=== PATIENT | male | born 1980 | race Caucasian/White ===

== ENCOUNTER 2019-02-26 08:09 | Emergency (ER) | payer SELFPAY ==
[~2019-02-26] VITALS: Ht 175.2 cm; Wt 63.6 kg
[2019-02-26] MEDS ORDERED: LACTATED RINGERS 1,000 ML IV STA (08:31)
--- NOTE | 2019-02-26 08:43 | ED Abdominal Pain ---
General Chief Complaint: Abdominal/GI Problems Stated Complaint: ABD PAIN History of Present Illness Date Seen by Provider: Feb 26, 2019 Time Seen by Provider: 08:20 Initial Comments The patient is a 38-year-old male with a history of Crohn's disease on sulfasalazine but not on any other disease modifying medications. He has a surgical history of appendectomy only. He presents with concern for 1 month of mild midline infraumbilical abdominal discomfort with associated progressive abdominal wall induration. Over the last 1-2 days patient has noted erythema to his umbilicus and infraumbilical abdominal wall. For this reason he elected to present to the emergency department for evaluation. Associated chronic nausea but no new or worsened nausea or vomiting. No associated fevers, hematemesis, hematochezia, melena, cough, shortness of breath or chest pain, flank pain, back pain, specifically right sided abdominal pain, dysuria or hematuria, groin pain, changes in bowel habits. He states he has been having mildly loose bowel movements secondary to MiraLAX use but reports no change in stool frequency recently. Patient is resting comfortably in no acute distress upon initial evaluation in the emergency department. He states he was worried by the redness to his abdominal wall and wanted to get it checked out. Allergies and Home Medications Allergies Coded Allergies: No Known Drug Allergies (Unverified , 02/26/19) Patient Home Medication List Home Medication List Reviewed: Yes Review of Systems Review of Systems Constitutional: see HPI All Other Systems Reviewed Negative Unless Noted: Yes (Negative excepted noted.) Past Jdakedf-Acknep-Yfcosy Hx Past Med/Social Hx: Reviewed Nursing Past Med/Soc Hx Patient Social History Recent Foreign Travel: Yes Family Medical History Reviewed Nursing Family Hx Physical Exam Vital Signs Vital Signs - First Documented 02/26/19 08:18 Temp 36.5 Pulse 112 Resp 16 B/P (MAP) 140/92 (108) Pulse Ox 98 O2 Delivery Room Air Capillary Refill : Height/Weight/BMI Height: '" Weight: lbs. oz. kg; BMI Method: General Appearance: no apparent distress Exam Comments This is a younger male appearing nontoxic and in no acute distress. Head is normocephalic and atraumatic. Neck is supple and nontender. Oropharynx is moist. Lungs clear to auscultation in all stations. There is a normal S1 and S2 without rubs or gallops and capillary refill is appropriate, less than 2 seconds globally. Abdomen is soft and nondistended and with an area of significant umbilical and infraumbilical midline tenderness, erythema and warmth. There is significant induration to the abdominal wall over the site in question. No rebound or guarding. Skin is warm and dry without cyanosis, clubbing or edema. Psychiatrically, the patient demonstrates appropriate mood and affect and is alert. Progress/Results/Core Measures Results/Orders Lab Results Laboratory Tests Test 02/26/19 08:35 02/26/19 09:42 Range/Units White Blood Count 15.8 H 4.3-11.0 10^3/uL Red Blood Count 4.67 4.35-5.85 10^6/uL Hemoglobin 14.5 13.3-17.7 G/DL Hematocrit 43 40-54 % Mean Corpuscular Volume 92 80-99 FL Mean Corpuscular Hemoglobin 31 25-34 PG Mean Corpuscular Hemoglobin Concent 34 32-36 G/DL Red Cell Distribution Width 12.6 10.0-14.5 % Platelet Count 386 130-400 10^3/uL Mean Platelet Volume 8.9 7.4-10.4 FL Neutrophils (%) (Auto) 82 H 42-75 % Lymphocytes (%) (Auto) 8 L 12-44 % Monocytes (%) (Auto) 10 0-12 % Eosinophils (%) (Auto) 0 0-10 % Basophils (%) (Auto) 0 0-10 % Neutrophils # (Auto) 12.9 H 1.8-7.8 X 10^3 Lymphocytes # (Auto) 1.3 1.0-4.0 X 10^3 Monocytes # (Auto) 1.6 H 0.0-1.0 X 10^3 Eosinophils # (Auto) 0.0 0.0-0.3 10^3/uL Basophils # (Auto) 0.0 0.0-0.1 10^3/uL Neutrophils % (Manual) 62 % Lymphocytes % (Manual) 9 % Monocytes % (Manual) 13 % Band Neutrophils 14 % Atypical Lymphocytes 2 % Blood Morphology Comment NORMAL Sodium Level 135 135-145 MMOL/L Potassium Level 3.7 3.6-5.0 MMOL/L Chloride Level 96 L 98-107 MMOL/L Carbon Dioxide Level 26 21-32 MMOL/L Anion Gap 13 5-14 MMOL/L Blood Urea Nitrogen 4 L 7-18 MG/DL Creatinine 0.74 0.60-1.30 MG/DL Estimat Glomerular Filtration Rate > 60 BUN/Creatinine Ratio 5 Glucose Level 142 H 70-105 MG/DL Calcium Level 9.4 8.5-10.1 MG/DL Corrected Calcium 9.3 8.5-10.1 MG/DL Total Bilirubin 0.5 0.1-1.0 MG/DL Aspartate Amino Transf (AST/SGOT) 10 5-34 U/L Alanine Aminotransferase (ALT/SGPT) 7 0-55 U/L Alkaline Phosphatase 82 40-136 U/L Total Protein 7.9 6.4-8.2 GM/DL Albumin 4.1 3.2-4.5 GM/DL Lipase 16 8-78 U/L My Orders Orders - LINCOLN SAAVEDRA MD Cbc With Automated Diff (02/26/19 08:31) Comprehensive Metabolic Panel (02/26/19 08:31) Lipase (02/26/19 08:31) Ua Culture If Indicated (02/26/19 08:31) Ct Abdomen/Pelvis W (02/26/19 08:31) Ondansetron Injection (Zofran Injectio (02/26/19 08:45) Lactated Ringers (Lr 1000 Ml Iv Solution (02/26/19 08:31) Ed Iv/Invasive Line Start (02/26/19 08:31) Ketorolac Injection (Toradol Injection) (02/26/19 08:45) Manual Differential (02/26/19 08:35) Iohexol Injection (Omnipaque 350 Mg/Ml 1 (02/26/19 09:00) Received Contrast (Hold Metformin- Contr (02/26/19 09:00) Sodium Chloride Flush (Catheter Flush Sy (02/26/19 09:00) Ns (Ivpb) (Sodium Chloride 0.9% Ivpb Bag (02/26/19 09:00) Piperacillin/Tazobactam (Bulk) (Zosyn In (02/26/19 10:00) Blood Culture (02/26/19 09:57) Lactic Acid Analyzer (02/26/19 09:57) Medications Given in ED Current Medications Medications Dose Ordered Sig/Lyubov Route Start Time Stop Time Status Last Admin Dose Admin Iohexol 100 ml ONCE ONCE IV 02/26/19 09:00 02/26/19 09:01 DC 02/26/19 09:11 100 ML Ketorolac Tromethamine 30 mg ONCE ONCE IVP 02/26/19 08:45 02/26/19 08:46 DC 02/26/19 08:52 30 MG Ondansetron HCl 4 mg ONCE ONCE IVP 02/26/19 08:45 02/26/19 08:46 DC 02/26/19 08:52 4 MG Sodium Chloride 10 ml NEEDED PRN IV 02/26/19 09:00 02/26/19 09:11 10 ML Sodium Chloride 100 ml ONCE ONCE IV 02/26/19 09:00 02/26/19 09:01 DC 02/26/19 09:11 80 ML Vital Signs/I&O 02/26/19 08:18 Temp 36.5 Pulse 112 Resp 16 B/P (MAP) 140/92 (108) Pulse Ox 98 O2 Delivery Room Air Progress Progress Note : Time: 08:43 Progress Note Younger, well-appearing gentleman with Crohn's disease who presents with 1 month of progressive abdominal discomfort infraumbilically with induration to the abd ominal wall and associated erythema 2 days. We will check labs and give IV fluids and medication for discomfort and will obtain a CT scan of the abdomen and pelvis with contrast to further evaluate the patient's symptoms. We will then reevaluate. Update 1000: Call by radiology with concern for enterocutaneous fistula with associated abdominal wall abscess. Bladder wall also appears thickened. We will initiate antibiotics after blood cultures and lactate. Case is discussed with Dr. Simental of general surgery at [facility] who recommends transfer to a higher level of care for attention from gastroenterology and interventional radiology for drainage of abscess. We will proceed with transfer to [facility] at this time. Patient is graciously accepted in transfer by the on-duty hospitalist at that facility. We'll proceed with transfer via EMS at this time. Diagnostic Imaging Diagonstic Imaging: CT Comments Date of Exam:02/26/19 CT ABDOMEN/PELVIS W PROCEDURE: CT abdomen and pelvis with contrast. TECHNIQUE: Multiple contiguous axial images were obtained through the abdomen and pelvis after administration of intravenous contrast. Auto Exposure Controls were utilized during the CT exam to meet ALARA standards for radiation dose reduction. INDICATION: [id number] abdominal pain. COMPARISON: No prior studies are available for comparison. FINDINGS: The lung bases are clear. No focal liver mass is identified. The gallbladder is unremarkable. No biliary ductal dilatation is identified. The pancreas is unremarkable. The spleen is unremarkable. Bilateral adrenal glands are unremarkable. No adrenal mass is detected. No renal mass or hydronephrosis is identified. The aorta is non-aneurysmal. Significant inflammatory changes are identified in the lower abdomen and upper pelvis. Significant wall thickening is noted involving a long segment of the terminal ileum. Patient reportedly does have a history of Crohn's disease. There is a gas collection which extends from the right lower quadrant to the anterior midline abdomen in the infraumbilical location, suggestive of a fistula. There is a small fluid collection midline anterior abdominal wall measuring 4.1 cm cephalocaudal x 2.5 cm AP x 1.5 cm transverse. This does contain small gas bubbles and is consistent with a small abscess. Significant nodularity and wall thickening involving the anterior aspect of the bladder dome is noted. No bowel obstruction is identified. There is no free fluid. No other fluid collections are identified. IMPRESSION: Marked inflammatory changes in the right lower quadrant, as described involving the terminal ileum and cecum. Features are most consistent with active Crohn's disease. 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 A small abscess is located within the anterior abdominal wall at this location. In addition, there is marked nodularity and thickening involving the anterior bladder dome. While this could be inflammatory in nature from adjacent inflammation from Crohn's disease, possibility of bladder neoplasm cannot be entirely excluded. Cystoscopy after course of therapy is recommended to confirm resolution. Dictated on workstation # [id number] Dict: 02/26/19 0925 Trans: 02/26/19 0951 [facility] [id number] Interpreted by: MORGAN LEI MD Electronically signed by: Departure Impression Primary Impression: Periumbilic abdominal rigidity Additional Impressions: Periumbilic abdominal tenderness Enterocutaneous fistula Disposition: 02 XFER SHT-TRM HOSP Condition: Stable LINCOLN SAAVEDRA MD Feb 26, 2019 08:43 POS
[2019-02-26] MEDS ORDERED: KETOROLAC 30 MG/ML VIAL IVP ONE (08:45)
[2019-02-26] MEDS ORDERED: ONDANSETRON 4 MG/2 ML (SDV) Z0FRAN IVP ONE (08:45)
[2019-02-26 08:51] LABS: BASOPHILS % (AUTO) 0 % (0-10); EOSINOPHILS % (AUTO) 0 % (0-10); HEMATOCRIT 43 % (40-54); HEMOGLOBIN 14.5 G/DL (13.3-17.7); LYMPHOCYTES # (AUTO) 1.3 X 10^3 (1.0-4.0); LYMPHOCYTES % (AUTO) 8 % (12-44); MEAN CORPUSCULAR HEMOGLOBIN 31 PG (25-34); MEAN CORPUSCULAR HGB CONC 34 G/DL (32-36); MEAN CORPUSCULAR VOLUME 92 FL (80-99); MEAN PLATELET VOLUME 8.9 FL (7.4-10.4); MONOCYTES # (AUTO) 1.6 X 10^3 (0.0-1.0); MONOCYTES % (AUTO) 10 % (0-12); NEUTROPHILS # (AUTO) 12.9 X 10^3 (1.8-7.8); NEUTROPHILS % (AUTO) 82 % (42-75); PLATELET COUNT 386 10^3/uL (130-400); RED CELL DISTRIBUTION WIDTH 12.6 % (10.0-14.5); WHITE BLOOD COUNT 15.8 10^3/uL (4.3-11.0)
[2019-02-26] MEDS ORDERED: IOHEXOL 350 MG/ML 100 ML (OMNIPAQUE 350) VIAL IV ONE (09:00)
[2019-02-26] MEDS ORDERED: NS 100 ML (IVPB) BAG IV ONE (09:00)
[2019-02-26] MEDS ORDERED: HOLD METFORMIN - RECEIVED CONTRAST 20 ML VIAL IV SCH (09:00)
[2019-02-26] MEDS ORDERED: CATHETER FLUSH 10 ML SYR IV PRN (09:00)
[2019-02-26 09:06] LABS: ATYPICAL LYMPHOCYTES 2 %; BAND NEUTROPHILS 14 %; LYMPHOCYTES % (MANUAL) 9 %; MONOCYTES % (MANUAL) 13 %; NEUTROPHILS % (MANUAL) 62 %; RBC MORPH NORMAL
[2019-02-26 09:09] LABS: ALANINE AMINOTRANSFERASE 7 U/L (0-55); ALBUMIN 4.1 GM/DL (3.2-4.5); ALKALINE PHOSPHATASE 82 U/L (40-136); BILIRUBIN,TOTAL 0.5 MG/DL (0.1-1.0); BUN/CREATININE RATIO 5; CALCIUM 9.4 MG/DL (8.5-10.1); CARBON DIOXIDE 26 MMOL/L (21-32); CHLORIDE 96 MMOL/L (98-107); CREATININE SERUM 0.74 MG/DL (0.60-1.30); GFR ESTIMATED > 60; GLUCOSE 142 MG/DL (70-105); LIPASE 16 U/L (8-78); POTASSIUM 3.7 MMOL/L (3.6-5.0); SODIUM 135 MMOL/L (135-145); TOTAL PROTEIN 7.9 GM/DL (6.4-8.2)
--- NOTE | 2019-02-26 09:51 | Diagnostic Imaging Report ---
PROCEDURE: CT abdomen and pelvis with contrast. TECHNIQUE: Multiple contiguous axial images were obtained through the abdomen and pelvis after administration of intravenous contrast. Auto Exposure Controls were utilized during the CT exam to meet ALARA standards for radiation dose reduction. INDICATION: [id number] abdominal pain. COMPARISON: No prior studies are available for comparison. FINDINGS: The lung bases are clear. No focal liver mass is identified. The gallbladder is unremarkable. No biliary ductal dilatation is identified. The pancreas is unremarkable. The spleen is unremarkable. Bilateral adrenal glands are unremarkable. No adrenal mass is detected. No renal mass or hydronephrosis is identified. The aorta is non-aneurysmal. Significant inflammatory changes are identified in the lower abdomen and upper pelvis. Significant wall thickening is noted involving a long segment of the terminal ileum. Patient reportedly does have a history of Crohn's disease. There is a gas collection which extends from the right lower quadrant to the anterior midline abdomen in the infraumbilical location, suggestive of a fistula. There is a small fluid collection midline anterior abdominal wall measuring 4.1 cm cephalocaudal x 2.5 cm AP x 1.5 cm transverse. This does contain small gas bubbles and is consistent with a small abscess. Significant nodularity and wall thickening involving the anterior aspect of the bladder dome is noted. No bowel obstruction is identified. There is no free fluid. No other fluid collections are identified. IMPRESSION: Marked inflammatory changes in the right lower quadrant, as described involving the terminal ileum and cecum. Features are most consistent with active Crohn's disease. 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 A small abscess is located within the anterior abdominal wall at this location. In addition, there is marked nodularity and thickening involving the anterior bladder dome. While this could be inflammatory in nature from adjacent inflammation from Crohn's disease, possibility of bladder neoplasm cannot be entirely excluded. Cystoscopy after course of therapy is recommended to confirm resolution. Dictated by: Dictated on workstation # [id number]
[2019-02-26] MEDS ORDERED: PIPERACILLIN/TAZOBACTAM (BULK) 4.5 GM in NS (IVPB) 100 ML IV ONE (10:00)
[2019-02-26 10:02] LABS: BILIRUBIN,URINE NEGATIVE (NEGATIVE); CLARITY,URINE CLEAR; COLOR,URINE YELLOW; GLUCOSE, URINE (UA) NEGATIVE (NEGATIVE); KETONES,URINE TRACE (NEGATIVE); LEUKOCYTE ESTERASE ,URINE NEGATIVE (NEGATIVE); NITRITE,URINE NEGATIVE (NEGATIVE); PH,URINE 7.5 (5-9); PROTEIN,URINE NEGATIVE (NEGATIVE)
[2019-02-26 10:03] LABS: BACTERIA,URINE NEGATIVE /HPF; RBC,URINE 0-2 /HPF; SQUAMOUS EPITHELIAL CELL,UR 0-2 /HPF; WBC,URINE 0-2 /HPF
[2019-02-26] MEDS ORDERED: PIPERACILLIN/TAZO 4.5 GM VIAL (ZOSYN) IV ONE (10:46)
[2019-02-26 13:10] VITALS: BP 120/90
== END 2019-02-26 13:10 | disposition short-term general hospital (02) ==
LOC: ER FS 08:18
DX: K63.2 Fistula of intestine (principal); Z87.19 Personal history of other diseases of the digestive system; Z90.49 Acquired absence of other specified parts of digestive tract
CPT/HCPCS: 36415; 74177; 80053; 81000; 83605; 83690; 85007; 85027; 87040